=== PATIENT | female | born 1995 | race Caucasian/White ===

== ENCOUNTER 2018-08-09 20:41 | Emergency (ER) | payer OTHER ==
[~2018-08-09] VITALS: Ht 157.5 cm; Wt 68.2 kg
[2018-08-09] MEDS ORDERED: FLAG500T PO (21:55)
[2018-08-09] MEDS ORDERED: MACR100C43 PO (21:55)
[2018-08-09] MEDS ORDERED: metroNIDAZOLE (FLAGYL) 500 MG TAB PO ONE (22:00)
[2018-08-09] MEDS ORDERED: ONDANSETRON 4 MG ORAL DISINTEGRATING TAB (Q0162 PER 1MG) PO ONE (22:00)
[2018-08-09] MEDS ORDERED: NITROFURANTOIN (MACROBID) 100 MG CAP PO ONE (22:00)
[2018-08-09 22:10] VITALS: BP 104/68
[2018-08-09 23:22] LABS: CHLAMYDIA DNA AMPLIFICATION POSITIVE (NEGATIVE); GC DNA AMPLIFICATION NEGATIVE (NEGATIVE)
== END 2018-08-09 22:13 | disposition home or self-care (01) ==
LOC: M ED 20:41
DX: N76.0 Acute vaginitis (principal); N39.0 Urinary tract infection, site not specified; Z98.890 Other specified postprocedural states
CPT/HCPCS: 81001; 81025; 87086; 87210; 87491; 87591; 99284; Q0162

== ENCOUNTER 2018-08-17 21:20 | Emergency (ER) | payer OTHER ==
[~2018-08-17] VITALS: Ht 157.5 cm; Wt 69.1 kg
[2018-08-17 21:20] VITALS: BP 134/88
[~2018-08-17 21:20] MED LIST: FLAG500T PO; MACR100C43 PO
[2018-08-17] MEDS ORDERED: DOXY100C37 PO (22:13)
[2018-08-17] MEDS ORDERED: DOXYCYCLINE HYCLATE 100 MG TAB PO ONE (22:15)
== END 2018-08-17 22:25 | disposition home or self-care (01) ==
LOC: M ED 21:20
DX: N73.9 Female pelvic inflammatory disease, unspecified (principal); A74.9 Chlamydial infection, unspecified